=== PATIENT | female | born 1980 | race Caucasian/White ===

== ENCOUNTER 2024-03-27 13:19 | Emergency (ER) | payer BC, SELFPAY ==
[2024-03-27 13:36] VITALS: BP 119/89; PULSE 68; RESP 16; TEMP 36.8; O2SAT 100
--- NOTE | 2024-03-27 13:59 | ED.GENADULT ---
HPI - General Adult General Chief complaint: Upper Respiratory Infection Stated complaint: IRRITATED EYES/SNEEZING/WANTS COVID TEST Time Seen by Provider: 03/27/24 13:50 Source: patient Mode of arrival: ambulatory Limitations: no limitations History of Present Illness HPI narrative: 43 year old female who presents to [facility] with complaints of irritated eyes with some pressure feeling, frequent sneezing,clear nasal drainage,'just doesn't feel right . Patient reports that she is scheduled to work the next 4 days in a row and work wants her tested prior to coming in to work. Patient reports that there have been positive COVID coworker in the past few weeks in her department at [facility]. Patient also states her daughter has been ill with virus MD complaint: nasal congestion, sneezing, eys feel irritated Onset (ago): day(s) (2 of symptoms) Severity: mild Treatments prior to arrival: none Related Data Home Medications Medication Instructions Recorded Confirmed polyethylene glycol 3350 17 17 g PO DAILY 03/27/24 03/27/24 gram/dose oral powder (Miralax) spironolactone 50 mg tablet 50 mg PO DAILY 03/27/24 03/27/24 Allergies Allergy/AdvReac Type Severity Reaction Status Date / Time No Known Allergies Allergy Verified 03/27/24 13:37 Review of Systems Review of Systems: CONSTITUTIONAL: Denies fever, chills, or sweats. EYES: Denies visual changes, redness, or discharge.reports eyes feel irritated with some pressure feeling ENT: Reports rhinorrhea, congestion, no sore throat, no otalgia. CARDIOVASCULAR: Denies chest pain, palpitations, or edema. RESPIRATORY: Denies cough or dyspnea. GASTROINTESTINAL: Denies abdominal pain, nausea, vomiting, or diarrhea. GENITOURINARY: Denies dysuria or hematuria. SKIN: Denies rash or itching. MUSCULOSKELETAL: Denies back pain, joint pain, or myalgia. NEUROLOGIC: Denies headache, numbness, or weakness. PSYCHIATRIC: Denies anxiety or depression. All systems reviewed & are unremarkable except as noted in HPI and below PMFSH Past Medical History Medical History Constipation Surgical History Surgical History Previous section x2 S/P laparoscopy with lysis of adhesions Social History Social History Smoking status: Never smoker Alcohol intake: current Alcohol use details: social Living arrangements: with family Gender identity (if verbalized by the patient): Female Comments At time of signature, agree with nursing past medical, surgical, social and family history. There is no relevant family history pertinent to the presenting complaint Exam Narrative: GENERAL: Well-appearing, well-nourished, and in no acute distress. HEAD: Normocephalic, atraumatic. EYES: PERRLA and EOMI. ENT: Nares clear, scant clear rhinorrhea no epistaxis. Mucous membranes moist.TM's normal throat with no tonsil swelling NECK: Supple. no lymphadenopathy CHEST: Clear to auscultation. No respiratory distress.SAO2 100% on room air HEART: Regular rate and rhythm. No murmur heard. Normal peripheral pulses. ABDOMEN: Soft, nontender, nondistended, normal active bowel sounds. EXTREMITIES: Normal range of motion. No edema. SKIN: Warm, dry, no rash. NEURO: No focal deficits. Alert and oriented x3. Course Course Emergency Course: Patient is aware of diagnosis, understands and agrees to treatment plan.? Anticipatory guidance given.? Patient agrees to follow-up as directed and is aware of reasons to seek care at the emergency department. Portions of this record may have been created with voice recognition software Level of Care: Express Care Visit Vital Signs Vital signs: Vital Signs Temperature 36.8 C 03/27/24 13:36 Pulse Rate 68 03/27/24 13:36 Respiratory Rate 16 03/27/24 13:36 Blood Pressure 119/89 03/27/24 13:3
[2024-03-27 14:03] LABS: EDSTREPNEGPOS1 Negative (Negative)
[2024-03-27 14:04] LABS: EDCOVIDSCREEN Negative (Negative); EDINFLUASCREEN Negative (Negative); EDINFLUBSCREEN Negative (Negative)
== END 2024-03-27 14:09 | disposition home or self-care (01) ==
PROVIDERS: Emergency Provider Registered Nurse
DX: J06.9 Acute upper respiratory infection, unspecified (principal); Z20.822 Contact with and (suspected) exposure to COVID-19
CPT/HCPCS: 87081; 87635; 87804; 87880; 99203; G0463